=== PATIENT | female | born 1980 | race Caucasian/White ===

== ENCOUNTER 2017-11-27 21:31 | Emergency (ER) | payer OTHER ==
[~2017-11-27] VITALS: Ht 165.1 cm; Wt 91.2 kg
[~2017-11-27 21:31] MED LIST: NAPROSYN500 MG PO; SUMATRIPTAN SU100 MG PO; ZOFRAN4 MG PO
[2017-11-27 22:20] LABS: HEMOGLOBIN 11.8 G/DL (11.9-15.5); MCH 28.2 PG (29.0-34.0); MCHC 33.7 G/DL (30.0-36.0); MCV 83.7 FL (83-99); PLATELET COUNT 307 K/uL (156-360); RBC DIS.WIDTH-CV 13.6 % (11.8-14.6); RBC DIS.WIDTH-SD 41.7 % (39-53); RED BLOOD COUNT 4.18 M/uL (3.80-5.20)
[2017-11-27 22:36] LABS: CHLORIDE 105 mEq/L (99-109); POTASSIUM 3.8 mEq/L (3.7-5.4); SODIUM 139 mEq/L (136-147)
[2017-11-27 22:38] LABS: GLUCOSE 112 mg/dL (70-99)
[2017-11-27 22:42] LABS: CREATININE 0.7 mg/dL (0.6-1.3); GFR ESTIMATE (CALCULATED) > 59 mL/min/
[2017-11-27 22:43] LABS: UREA NITROGEN (BUN) 11 mg/dL (9-23)
[2017-11-27 22:44] LABS: CREATINE KINASE 91 IU/L (1-294)
[2017-11-27 23:48] LABS: APPEARANCE CLEAR ((CLEAR)); BILIRUBIN NEGATIVE; BLOOD MODERATE; COLOR COLORLESS ((YELLOW)); GLUCOSE (STRIP) NEGATIVE; KETONES 5; LEUKOCYTES NEGATIVE; NITRITE NEGATIVE; PROTEIN (STRIP) NEGATIVE; SPECIFIC GRAVITY 1.004 (1.000-1.030); UROBILINOGEN 0.2 MG/DL (0.2-1.0)
[2017-11-27 23:51] LABS: BACTERIA NONE SEEN /HPF; EPITHELIAL CELLS RARE /HPF; MUCUS NONE SEEN /LPF; RED BLOOD CELLS 0-5 /HPF (0-5); WHITE BLOOD CELLS 0-5 /HPF (0-5)
[2017-11-28] MEDS ORDERED: NAPROSYN500 MG PO (01:21)
[2017-11-28 01:39] VITALS: BP 125/91
== END 2017-11-28 01:39 | disposition home or self-care (01) ==
LOC: EME 21:31
PROVIDERS: Physician Assistant
DX: T67.5XXA Heat exhaustion, unspecified, initial encounter (principal); X30.XXXA Exposure to excessive natural heat, initial encounter; M62.838 Other muscle spasm; Y93.68 Activity, volleyball (beach) (court); G43.909 Migraine, unspecified, not intractable, without status migrainosus; Z87.891 Personal history of nicotine dependence
CPT/HCPCS: 80048; 81003; 82550; 85027; 99281; 99285; J1885; J2060; J2405; J7030